=== PATIENT | female | born 1990 | race Caucasian/White ===

== ENCOUNTER 2017-05-29 14:16 | Inpatient (IN) | payer MEDICAID ==
[~2017-05-29] VITALS: Ht 157.5 cm; Wt 64.4 kg
[2017-05-29 14:21] VITALS: BP 132/78
--- NOTE | 2017-05-29 15:04 | NUR ---
NOTIFIED OF UA DIPSTICK RESULTS AND +
--- NOTE | 2017-05-29 18:52 | NUR ---
PATIENT AMBULATED TO BED 5.
--- NOTE | 2017-05-29 19:25 | NUR ---
26Y F BIB FAMILY C/O SUPRAPUBIC PAIN X 1 MONTH, WORSE X 3 DAYS-COLIC TYPE PAIN---NAUSEA, DIZZINESS. PT DENIES DYSURIA, DENIES LOOSE/WATERY--- VISITED PMD 3 WKS AGO--PT STATES NOTHING WAS GIVEN HX---DENIES RX---NONE
[2017-05-29 21:11] LABS: BASOPHILS # (AUTO) 0.4 K/uL (0.00-0.22); HEMOGLOBIN 13.6 g/dL (12.0-16.0); LYMPHOCYTES # (AUTO) 2.7 K/uL (2.5-16.5); MONOCYTES # (AUTO) 0.5 K/uL (0.8-1.0)
[2017-05-29 21:14] LABS: EOSINOPHILS # (AUTO) 0.3 K/uL (0-0.4); HEMATOCRIT 40.4 % (36-48); MEAN CORPUSCULAR HEMOGLOBIN 30 pg (27-31); MEAN CORPUSCULAR HGB CONC 34 g/dL (33-37); MEAN CORPUSCULAR VOLUME 90 fL (80-94); NEUTROPHILS # (AUTO) 6.2 K/uL (1.8-7.7); PLATELET COUNT (AUTO) 185 K/uL (140-450); RED CELL DISTRIBUTION WIDTH 12.6 % (11.6-13.7); WHITE BLOOD COUNT (AUTO) 10.1 K/uL (4.8-10.8)
[2017-05-29 21:23] LABS: ANION GAP 15.4 (8-16); CALCIUM 8.7 mg/dL (8.5-10.1); CARBON DIOXIDE 21.5 mmol/L (21-32); CREATININE 0.6 mg/dL (0.6-1.3); POTASSIUM 3.9 mmol/L (3.5-5.1)
[2017-05-29 21:31] LABS: PARTIAL THROMBOPLASTIN TIME 26.1 secs (22-35.6); PROTHROMBIN TIME 10.5 secs (10.8-13.4)
[2017-05-29 21:34] LABS: ALBUMIN 3.9 g/dL (3.4-5.0); THYROID STIMULATING HORMONE 2.61 uIU/mL (0.34-3.74); TOTAL BILIRUBIN 0.4 mg/dL (0.0-1.0); TOTAL PROTEIN, SERUM 7.2 g/dL (6.4-8.2)
[2017-05-29] MEDS ORDERED: ACETAMINOPHEN 325 MG TAB PO PRN (23:40)
[2017-05-29] MEDS ORDERED: ONDANSETRON 4 MG/2 ML VIAL IVP PRN (23:40)
--- NOTE | 2017-05-30 00:17 | NUR ---
Patient will be admitted to care of DR NAVARRO. Admited to MS 104A. Will go to room 104A. Belongings list completed. Report to ARIELLE BRINK .
[2017-05-30 00:45] VITALS: BP 124/63
--- NOTE | 2017-05-30 00:45 | NUR ---
ADMITTED PATIENT TO THE MED-SURG UNIT. PATIENT AWAKE ALERT ORIENTED X4, NO S/S OF ACUTE DISTRESS NOTED, RESPIRATION EVEN AND UNLABORED, IV PATIENT AND INTACT, STARTED D5NS AT 100ML/HR. PATIENT STATED," I HAVE PAIN 7/10 WHEN I AM WALKING TO THE BATHROOM, BUT WHEN NOT MOVING, JUST A LITTLE BIT UNCOMFORTABLE." PLAN OF CARE DISCUSSED, PATIENT VERBALIZED UNDERSTANDING. CALL LIGHT WITHIN REACH, SIDE RAIL UP X2, BED AT LOWEST POSITION, WILL CONTINUE TO MONITOR.
[2017-05-30] MEDS: DEXT 5% /NACL 0.9% 1,000 ML IV SCH ×3 (01:15→20:49)
[2017-05-30 02:34] LABS: CREATINE KINASE MB 0.3 ng/mL (0-3.6)
--- NOTE | 2017-05-30 02:39 | NUR ---
PATIENT IS SLEEPING AT THIS TIME, NO S/S OF ACUTE DISTRESS NOTED, RESPIRATION EVEN AND UNLABORED, CALL LIGHT WITHIN REACH, SAFETY MEASURE MAINTAINED, WILL CONTINUE TO MONITOR.
--- NOTE | 2017-05-30 05:30 | NUR ---
OFFERED ICE PACK COMFORT MEASURE, PATIENT IS SLEEPING AT THIS TIME. NO S/S OF ACUTE DISTRESS NOTED, CALL LIGHT WITHIN REACH, SAFETY MEASURE MAINTAINED, WILL CONTINUE TO MONITOR.
[2017-05-30 06:30] LABS: BASOPHILS # (AUTO) 0.2 K/uL (0.00-0.22); BASOPHILS % (AUTO) 2.6 % (0.0-2.0); EOSINOPHILS # (AUTO) 0.1 K/uL (0-0.4); EOSINOPHILS % (AUTO) 1.2 % (0.0-4.0); HEMATOCRIT 38.8 % (36-48); LYMPHOCYTES # (AUTO) 2.4 K/uL (2.5-16.5); LYMPHOCYTES % (AUTO) 27.5 % (20.5-51.1); MEAN CORPUSCULAR HEMOGLOBIN 30 pg (27-31); MEAN CORPUSCULAR HGB CONC 34 g/dL (33-37); MEAN CORPUSCULAR VOLUME 90 fL (80-94); MONOCYTES # (AUTO) 0.7 K/uL (0.8-1.0); NEUTROPHILS # (AUTO) 5.2 K/uL (1.8-7.7); NEUTROPHILS % (AUTO) 60.7 % (42.2-75.2); PLATELET COUNT (AUTO) 171 K/uL (140-450); RED BLOOD CELL COUNT(AUTO) 4.32 MIL/uL (4.20-5.40); RED CELL DISTRIBUTION WIDTH 12.6 % (11.6-13.7); WHITE BLOOD COUNT (AUTO) 8.6 K/uL (4.8-10.8)
[2017-05-30 06:52] LABS: ALBUMIN 3.4 g/dL (3.4-5.0); ANION GAP 9.9 (8-16); CARBON DIOXIDE 24.5 mmol/L (21-32); CREATININE 0.7 mg/dL (0.6-1.3); PHOSPHORUS 3.6 mg/dL (2.5-4.9); POTASSIUM 3.4 mmol/L (3.5-5.1); TOTAL BILIRUBIN 0.6 mg/dL (0.0-1.0); TOTAL PROTEIN, SERUM 6.3 g/dL (6.4-8.2)
--- NOTE | 2017-05-30 07:05 | NUR ---
ENDORSED PLAN OF CARE TO DAY RN, PATIENT IS IN STABLE CONDITION. RESPIRATION EVEN AND UNLABORED, NO S/S OF ACUTE DISTRESS NOTED.
[2017-05-30 07:18] LABS: CREATINE KINASE MB 0.2 ng/mL (0-3.6)
--- NOTE | 2017-05-30 07:20 | NUR ---
RECEIVED PT IN BED. AWAKE. ALERT ORIENTEDX4 NO SOB NOTED. POSITIVE BOWEL SOUNDS NOTED ON FOUR QUADRANTS. PT AMBULATORY. DR. Aleisha WOO CAME TO SEE PT. SAFETY PRECAUTION IN PLACE. CALL LIGHT WITHIN REACH.
[2017-05-30 08:00] VITALS: BP 111/60
[2017-05-30] MEDS: MORPHINE SULFATE 4 MG/ML SYR IVP PRN ×2 (09:12→23:27)
--- NOTE | 2017-05-30 09:32 | NUR ---
PATIENT HAS BEEN SCREENED AND CATEGORIZED MODERATE NUTRITION RISK. PATIENT WILL BE SEEN WITHIN 3-5 DAYS OF ADMISSION. 06/01/17-06/03/[address]
--- NOTE | 2017-05-30 11:59 | NUR ---
CALLED DR. NAVARRO REGARDING THE POTASSIUM LEVEL OF PT 3.4 WITH ORDERS MADE AND CARRIED OUT TORB
[2017-05-30] MEDS ORDERED: POTASSIUM CHLORIDE 10 MEQ TABER PO SCH (12:10)
[2017-05-30 13:08] LABS: CREATINE KINASE MB 0.2 ng/mL (0-3.6)
[2017-05-30 16:00] VITALS: BP 113/63
--- NOTE | 2017-05-30 16:00 | NUR ---
SS NOTE: I SPOKE WITH PT AND PT'S , BANG VELAZQUEZ. I PROVIDED PT WITH A LIST OF LOW COST CLINICS AND A PRESCRIPTION DISCOUNT CARD (PT HAS RESTRICTED MEDI-ZEE). PT STATED THAT SHE ALREADY HAS A PCP TO FOLLOW UP WITH.
--- NOTE | 2017-05-30 17:11 | NUR ---
PT ASKING WHAT TIME DR. NAVARRO WILL COME. PAGED DR. NAVARRO AND HE SAID HE WILL BE HERE IN AN HOUR AND A HALF TO SEE PT.
[2017-05-30] MEDS: HYDROcodone/APAP 5/325 MG 1 TAB TAB PO PRN (18:00)
--- NOTE | 2017-05-30 18:10 | NUR ---
PT MELANIE CAME TO SEE PT. AND EXPLAINED TO PT STATUS AND PLANS FOR TREATMENT. PT COMPLAINED OF NOT HAVING BOWEL MOVEMENT FOR [address] NAVARRO MADE AWARE WITH NER ORDERS MADE AND CARRIED OUT.
--- NOTE | 2017-05-30 19:38 | NUR ---
PT KEPT CLEAN DRY AND COMFORTABLE, NEEDS ATTENDED. ENDORSED TO NEXT SHIFT ON STABLE CONDITION FOR CONTINUITY OF CARE.
--- NOTE | 2017-05-30 19:39 | NUR ---
RECEIVED REPORT FROM DAY RN FOR CONTINUITY OF CARE. PATIENT IS ALERT AND ORIENTED X4, DISCUSSED PLAN OF CARE WITH PATIENT, VERBALIZED UNDERSTANDING. SHIFT ASSESSMENT DONE, VITAL SIGNS STABLE. NO S/S OF RESPIRATORY DISTRESS NOTED ON ROOM AIR. PATIENT DENIES ABDOMINAL PAIN AT THIS TIME. IV TO LT AC PATENT AND INFUSING FLUIDS WELL. SKIN INTACT. SAFETY PRECAUTIONS ENFORCED, CALL LIGHT WITHIN REACH. WILL CONTINUE TO MONITOR.
[2017-05-30 20:00] VITALS: BP 111/63
[2017-05-30] MEDS: DOCUSATE SODIUM 100 MG GELCAP PO SCH (20:49)
--- NOTE | 2017-05-30 20:49 | NUR ---
DUE MEDICATIONS ADMINISTERED, TOLERATED WELL. PATIENT RESTING IN BED NO S/S OF DISTRESS OR DISCOMFORT NOTED. CALL LIGHT WITHIN REACH, FAMILY MEMBER AT BEDSIDE.
--- NOTE | 2017-05-30 23:27 | NUR ---
VITAL SIGNS STABLE, PT C/O ABDOMINAL PAIN, MEDICATED PER MD ORDER. PATIENT AMBULATED TO RESTROOM, VOIDED. NO S/SX OF DISTRESS OR DISCOMFORT NOTED. CALL LIGHT PLACED WITHIN REACH.
[2017-05-31] VITALS: BP 114/66
--- NOTE | 2017-05-31 02:00 | NUR ---
PATIENT SLEEPING AT THIS TIME, NO S/SX OF DISTRESS OR DISCOMFORT NOTED. CALL LIGHT WITHIN REACH.
--- NOTE | 2017-05-31 04:10 | NUR ---
PATIENT SLEEPING AT THIS TIME, NO DISTRESS OR DISCOMFORT NOTED. CALL LIGHT IN REACH.
[2017-05-31] MEDS: DEXT 5% /NACL 0.9% 1,000 ML IV SCH ×2 (05:16→15:41)
[2017-05-31 07:03] LABS: BASOPHILS # (AUTO) 0.3 K/uL (0.00-0.22); BASOPHILS % (AUTO) 3.8 % (0.0-2.0); EOSINOPHILS # (AUTO) 0.2 K/uL (0-0.4); EOSINOPHILS % (AUTO) 2.5 % (0.0-4.0); HEMATOCRIT 38.5 % (36-48); HEMOGLOBIN 12.6 g/dL (12.0-16.0); LYMPHOCYTES # (AUTO) 2.1 K/uL (2.5-16.5); LYMPHOCYTES % (AUTO) 31.5 % (20.5-51.1); MEAN CORPUSCULAR HEMOGLOBIN 30 pg (27-31); MEAN CORPUSCULAR HGB CONC 33 g/dL (33-37); MEAN CORPUSCULAR VOLUME 91 fL (80-94); MONOCYTES # (AUTO) 0.6 K/uL (0.8-1.0); MONOCYTES % (AUTO) 8.9 % (1.7-9.3); NEUTROPHILS # (AUTO) 3.5 K/uL (1.8-7.7); NEUTROPHILS % (AUTO) 53.3 % (42.2-75.2); PLATELET COUNT (AUTO) 165 K/uL (140-450); RED BLOOD CELL COUNT(AUTO) 4.22 MIL/uL (4.20-5.40); RED CELL DISTRIBUTION WIDTH 12.8 % (11.6-13.7); WHITE BLOOD COUNT (AUTO) 6.7 K/uL (4.8-10.8)
--- NOTE | 2017-05-31 07:18 | NUR ---
ENDORSED PATIENT TO DAY RN FOR CONTINUITY OF CARE, PATIENT IS IN STABLE CONDITION.
--- NOTE | 2017-05-31 07:19 | NUR ---
RECEIVED PT FROM FIRE TRUCK DRIVER NURSE AT BEDSIDE. PT IS A&OX4. NO DISTRESS NOTED. PT DENIES PAIN AT TIME. PROVIDED AN EXTRA BLANKET. PT HAS IV ON L AC 20G RUNNING D5NS@100. WILL FOLLOW UP ON HCG RESULT AND UPDATE PT ON PLAN OF CARE. CALL LIGHT WITHIN REACH. WILL CONTINUE TO MONITOR.
[2017-05-31 07:58] LABS: ANION GAP 13.2 (8-16); CALCIUM 7.9 mg/dL (8.5-10.1); CARBON DIOXIDE 21.8 mmol/L (21-32); CREATININE 0.6 mg/dL (0.6-1.3)
[2017-05-31 08:00] VITALS: BP 109/57
[2017-05-31] MEDS ORDERED: MILD SOAP AND WATER TP SCH (09:00)
[2017-05-31] MEDS ORDERED: LACTOBACILLUS RHAMNOSUS GG 1 EACH CAP PO SCH (09:00)
[2017-05-31] MEDS ORDERED: BACITRACIN ZINC/POLYMYXIN B OINT 30 GM TUBE TP SCH (09:00)
[2017-05-31] MEDS ORDERED: NACL 0.9% IRR 250 ML BOTTLE IR SCH (09:00)
--- NOTE | 2017-05-31 09:00 | NUR ---
PT IS RESTING COMFORTABLY IN BED. STATED SHE DOES NOT NEED PAIN MED AT THIS TIME. CALL LIGHT WITHIN REACH. WILL CONTINUE TO MONITOR.
--- NOTE | 2017-05-31 11:30 | NUR ---
PT IS RESTING IN BED. NO DISTRESS NOTED. CALL LIGHT WITHIN REACH. WILL CONTINUE TO MONITOR.
[2017-05-31] MEDS ORDERED: CLINDAMYCIN 600 MG in DEXTROSE 5% 50 ML IV SCH (12:00)
--- NOTE | 2017-05-31 13:24 | NUR ---
TALKED TO DR. WOO REGARDING PT'S COMPLAINT OF PAIN AND HCG LEVEL. DR. WOO SAID HE WILL COME WITHIN 1 HOUR.
--- NOTE | 2017-05-31 13:40 | NUR ---
DR. WOO SAW PT IN ROOM. ORDERED US OF ABD AND PELVIS. WILL CARRY IT OUT.
--- NOTE | 2017-05-31 13:45 | NUR ---
DR. PETR WOO ASKED RN TO CALL HIM WITH US RESULTS.
--- NOTE | 2017-05-31 15:16 | NUR ---
PT IS RESTING COMFORTABLY IN BED. NO DISTRESS NOTED. CALL LIGHT WITHIN REACH. WILL CONTINUE TO MONITOR.
[2017-05-31 16:00] VITALS: BP 112/65
[2017-05-31] MEDS ORDERED: IBUP-2213 PO (17:00)
--- NOTE | 2017-05-31 17:00 | NUR ---
SPOKE TO DR. NAVARRO REGARDING PT'S DC ORDER. DR. NAVARRO ASKED RN TO CALL HIM WITH US RESULTS FIRST. WILL CARRY OUT ORDER.
--- NOTE | 2017-05-31 19:20 | NUR ---
ENDORSED CARE OF PT TO ALICIA AT BEDSIDE. PT IN STABLE CONDITION.
--- NOTE | 2017-05-31 19:21 | NUR ---
RECD. SITTING ON BED, AWAKE, A/OX4. RESPIRATION EVEN AND UNLABORED. IV OF D5NS AT 100 ML/HR INFUSING, LEFT FOREARM G22. PLAN OF CARE FOR THE SHIFT DISCUSSED. VERBALIZED UNDERSTANDING. DENIES PAIN 0/10. WILL FOLLOW RESULT OF OB AND ABDOMINAL US. FAMILY AT THE BEDSIDE.
--- NOTE | 2017-05-31 20:00 | NUR ---
RESTING ON CHAIR, ENDORSED TO CUBA FORTE FOR CONTINUITY OF CARE. FAMILY AT BEDSIDE.
--- NOTE | 2017-05-31 20:00 | NUR ---
ASSUMED CARE OF PATIENT. FAMILY AT BEDSIDE, PLAN OF CARE DISCUSSED WITH PATIENT AND FAMILY MEMBER, VERBALIZED UNDERSTANDING WELL. CALL LIGHT WITHIN REACH.
--- NOTE | 2017-05-31 20:30 | NUR ---
INFORMED DR. Ryann WOO RESULT OF OB AND ABD US. OBSERVE PATIENT FOR TONIGHT AND WILL SEE PATIENT TOMORROW MORNING.
--- NOTE | 2017-05-31 20:45 | NUR ---
INFORMED DR. Galilea NAVARRO OF THE RESULT OF OB AND ABDOMINAL U/S, AND THAT DR Ryann WOO WAS ALREADY INFORMED OF RESULT.
[2017-05-31 21:04] VITALS: BP 125/69
[2017-05-31] MEDS: MORPHINE SULFATE 4 MG/ML SYR IVP PRN (21:04)
[2017-05-31] MEDS: DOCUSATE SODIUM 100 MG GELCAP PO SCH (21:04)
[2017-05-31] MEDS: HYDROcodone/APAP 5/325 MG 1 TAB TAB PO PRN (23:50)
--- NOTE | 2017-05-31 23:53 | NUR ---
ASSISTED TO BRP. PAIN MEDS GIVEN ORDERED. CALL LIGHT WITHIN REACH.
[2017-06-01] MEDS: DEXT 5% /NACL 0.9% 1,000 ML IV SCH ×3 (03:40→21:23)
--- NOTE | 2017-06-01 05:12 | NUR ---
SLEEPING WELL. NO COMPLAINS. CALL LIGHT WITHIN REACH.
[2017-06-01] MEDS: MORPHINE SULFATE 4 MG/ML SYR IVP PRN (06:27)
--- NOTE | 2017-06-01 07:18 | NUR ---
ENDORSE CARE AT BEDSIDE WITH RIVKA BRINK. PATIENT IN STABLE CONDITION.
--- NOTE | 2017-06-01 07:19 | NUR ---
RECEIVED PT FROM JAIDEN FORTE RN AT BEDSIDE. PT IS A&OX4. PT C/O MILD PAIN BUT TOLERABLE, WILL CONTINUE TO MONITOR. PT HAS IV ON L F/A 22 G RUNNING D5NS@100. AT BEDSIDE. PT AMBULATED TO RESTROOM TOLERATED WELLL. VS WNL. CALL LIGHT WITHIN REACH. WILL CONTINUE TO MONITOR.
[2017-06-01 08:00] VITALS: BP 107/59
--- NOTE | 2017-06-01 09:00 | NUR ---
MADE ROUNDS ON PT. PT IS SLEEPING. NO DISTRESS NOTED. CALL LIGHT WITHIN REACH. WILL CONTINUE TO MONITOR.
--- NOTE | 2017-06-01 11:30 | NUR ---
DR. WOO MADE ROUNDS ON PT. ANSWERED ALL QUESTIONS. CALL LIGHT WITHIN REACH. WILL CONTINUE TO MONITOR.
[2017-06-01 16:00] VITALS: BP 108/59
[2017-06-01] MEDS: HYDROcodone/APAP 5/325 MG 1 TAB TAB PO PRN ×2 (17:39→23:21)
--- NOTE | 2017-06-01 17:55 | NUR ---
PT REPORTED TO RN THAT SHE HAS HAD TROUBLE URINATING SINCE THIS AFTERNOON AND REPORTED DRIBBLING. PAGED DR. NAVARRO.
--- NOTE | 2017-06-01 18:00 | NUR ---
CHECK PT'S BLADDER USING BLADDER SCAN. 383 ML.
--- NOTE | 2017-06-01 18:26 | NUR ---
DR. NAVARRO ORDERED FLOMAX FOR PT. WILL CARRY OUT ORDER.
--- NOTE | 2017-06-01 19:25 | NUR ---
RECEIVED FROM AM RN IN BED AWAKE AND SITTING UP WATCHING TV. ABLE TO VERBALIZE SIMPLE NEEDS . CARE PLANS FOR THE NIGHT DISCUSSED WITH HER AND CALL LIGHT PLACED WITH IN REACH BESIDE HER. A/O X 4. ROM X 4. DX. ECTOPIC .
--- NOTE | 2017-06-01 19:30 | NUR ---
ENDORSED CARE OF PT TO PINBALL MACHINE REPAIRER NURSE AT BEDSIDE. PT IN STABLE CONDITION.
[2017-06-01] MEDS ORDERED: TAMSULOSIN 0.4 MG CAP PO SCH (21:00)
[2017-06-01] MEDS: DOCUSATE SODIUM 100 MG GELCAP PO SCH (21:22)
[2017-06-01 23:14] VITALS: BP 115/67
--- NOTE | 2017-06-01 23:23 | NUR ---
MEDICATED WITH NORCO P.O. RT COMPLAINED OF ABDOMINAL PAIN. A/O X 4. ROM X 4. CLEAR SPEECH.
--- NOTE | 2017-06-02 02:30 | NUR ---
SLEEPING. NO RESTLESSNESS. CALL LIGHT WITH IN REACH.
[2017-06-02] MEDS: DEXT 5% /NACL 0.9% 1,000 ML IV SCH ×2 (03:24→18:08)
--- NOTE | 2017-06-02 05:02 | NUR ---
SLEPT WELL THIS SHIFT. CALL LIGHT WITH IN REACH. NO COMPLAINTS DONE .
[2017-06-02] MEDS: HYDROcodone/APAP 5/325 MG 1 TAB TAB PO PRN (06:25)
--- NOTE | 2017-06-02 06:30 | NUR ---
PT. MOANING AND REQUESTED FOR NORCO RT ABDOMINAL PAIN. MEDICATED REQUESTED.
[2017-06-02 06:48] LABS: BASOPHILS # (AUTO) 0.3 K/uL (0.00-0.22); BASOPHILS % (AUTO) 4.5 % (0.0-2.0); EOSINOPHILS # (AUTO) 0.2 K/uL (0-0.4); HEMATOCRIT 36.7 % (36-48); HEMOGLOBIN 12.2 g/dL (12.0-16.0); LYMPHOCYTES # (AUTO) 2.1 K/uL (2.5-16.5); MEAN CORPUSCULAR HEMOGLOBIN 30 pg (27-31); MEAN CORPUSCULAR HGB CONC 33 g/dL (33-37); MEAN CORPUSCULAR VOLUME 90 fL (80-94); MONOCYTES # (AUTO) 0.6 K/uL (0.8-1.0); MONOCYTES % (AUTO) 9.5 % (1.7-9.3); NEUTROPHILS # (AUTO) 3.5 K/uL (1.8-7.7); PLATELET COUNT (AUTO) 163 K/uL (140-450); RED BLOOD CELL COUNT(AUTO) 4.08 MIL/uL (4.20-5.40); RED CELL DISTRIBUTION WIDTH 12.5 % (11.6-13.7); WHITE BLOOD COUNT (AUTO) 6.7 K/uL (4.8-10.8)
[2017-06-02 07:13] LABS: ANION GAP 10.7 (8-16); CALCIUM 8.2 mg/dL (8.5-10.1); CARBON DIOXIDE 25.3 mmol/L (21-32); CREATININE 0.6 mg/dL (0.6-1.3)
--- NOTE | 2017-06-02 07:30 | NUR ---
PT. SEEN AMBULATING AT THIS TIME WITH SPOUSE. REPORT GIVEN TO THE NEXT RN FOR CONTINUITY OF CARE.
--- NOTE | 2017-06-02 07:31 | NUR ---
REPORT RECEIVED FROM FOOD AND NUTRITION SUPERVISOR, PT AWAKE ALERT, UP AMBULATING TO BATHROOM WITH STEADY GAIT, OX4, RESP EVEN UNLABORED ON ROOM AIR IN NAD, DENIES PAIN, AT BEDSIDE, PLAN OF CARE REVIEWED, PT VERBALIZED UNDERSTANDING, INITIAL ASSESSMENT DONE, CALL YANG WITHIN REACH, SIDE RAILS UP, WILL CONTINUE TO MONITOR
--- NOTE | 2017-06-02 07:50 | NUR ---
DR Ryann WOO AT BEDSIDE, ORDER FOR US ABD RECEIVED, PT TO BE NPO, PT ALSO REQUEST SOMETHING TO HELP WITH ANXIETY, PT STATES SHE IS VERY WORRIED, COULDNT SLEEP LAST NIGHT, MUSCLE TENSE AROUND THE NECK, WILL CHECK PRN ORDERS.
[2017-06-02 08:00] VITALS: BP 100/49
--- NOTE | 2017-06-02 08:15 | NUR ---
DR JEANNETTE POLLOCK
--- NOTE | 2017-06-02 10:52 | NUR ---
US DONE AT BEDSIDE
--- NOTE | 2017-06-02 13:24 | NUR ---
PT SITTING UP IN BED, JUST FINISHED LUNCH, PT DENIES PAIN OR DISCOMFORT, APPEARS IN NAD, DENIES ANY IMMEDIATE NEEDS, CALL YNAG WITHIN REACH, WILL CONTINUE TO MONITOR.
--- NOTE | 2017-06-02 13:47 | NUR ---
DR Mauro WOO TO BEDSIDE
--- NOTE | 2017-06-02 14:30 | NUR ---
DR NAVARRO PAGED AT THIS TIME TO NOTIFY OF THAT PT MAY DC HOME PER DR Ryann WOO.
[2017-06-02 16:00] VITALS: BP 108/53
--- NOTE | 2017-06-02 16:27 | NUR ---
PT RESTING QUIETLY IN NAD, RESP EVEN UNLABORED, SKIN WARM DRY COLOR WNL, PT MADE AWARE OF PLAN FOR DC HOME, PT STATES HER CAN'T COME GET HER UNTIL 1800. WILL PREPARE FOR DC HOME.
--- NOTE | 2017-06-02 17:58 | NUR ---
DISCHARGE INSTRRUCTION AND RX GIVEN AND EXPLAINED TO PT VIA [facility] SPEAKING RN NICOLE, PT VERBALIZED FULL UNDERSTANDING, PT GIVEN INFO FOR F/U, PT UP AMBULATES TO BATHROOM WITH STEADY GAIT, IV DC'D, CATH TIP INTACT, BLEEDING CONTROLLED, AWAITING TO PICK HER UP.
--- NOTE | 2017-06-02 18:55 | NUR ---
AT BEDSIDE TO TAKE PT HOME, PT UP OUT OF BED WITHOUT PROBLEM, AMBULATES WITHOUT PROBLEM, DC HOME NOW WITH , ESCORTED OUT IN WHEELCHAIR BY PLACEMENT ASSISTANT.
== END 2017-06-02 18:55 | disposition home or self-care (01) | DRG 566 ==
LOC: MED 14:16 → MTU 05-30 00:06
PROVIDERS: ADMIT Preventive Medicine Preventive Medicine/Occupational Environmental Medicine; ATTEND Preventive Medicine Preventive Medicine/Occupational Environmental Medicine
DX: O00.90 Unspecified ectopic pregnancy without intrauterine pregnancy (principal); D25.9 Leiomyoma of uterus, unspecified; O34.11 Maternal care for benign tumor of corpus uteri, first trimester; O46.8X1 Other antepartum hemorrhage, first trimester; N83.202 Unspecified ovarian cyst, left side
CPT/HCPCS: 36415; 76700; 76801; 76817; 80048; 80053; 82550; 82553; 83735; 84100; 84443; 84484; 84702; 85025; 85610; 85730; 86900; 86901; 87081; 93005; 99285; J2270; J7030; J7042; Q0092; Q0163